=== PATIENT | male | born 1970 | race Caucasian/White ===

== ENCOUNTER → 2018-04-23 | Outpatient (CLI) | payer BC ==
[2018-04-23 14:17] LABS: BASO # 0.1 10^3/uL (0.0-0.2); BASO % 1.1 % (0.0-1.0); EOS # 0.4 10^3/uL (0.0-0.50); EOS % 4.2 % (0.0-3.0); HEMATOCRIT 45.9 % (42.0-52.0); HEMOGLOBIN 14.9 g/dl (13.5-17.5); IMMATURE GRANULOCYTE % 0.5 % (0-3.0); LYMPH # 2.9 10^3/uL (1.5-4.5); LYMPH % 33.5 % (24.0-44.0); MEAN CORPUSCULAR HEMOGLOBIN 30.1 pg (27.0-33.0); MEAN CORPUSCULAR HGB CONC 32.5 g/dl (32.0-36.5); MEAN CORPUSCULAR VOLUME 92.7 fl (80.0-96.0); MONO # 0.6 10^3/uL (0.0-0.8); MONO % 7.4 % (0.0-5.0); NEUTROPHILS # 4.6 10^3/uL (1.8-7.7); NEUTROPHILS % 53.3 % (36.0-66.0); PLATELET COUNT, AUTOMATED 244 10^3/uL (150-450); RED BLOOD COUNT 4.95 10^6/uL (4.30-6.10); RED CELL DISTRIBUTION WIDTH 13.5 % (11.5-14.5); WHITE BLOOD COUNT 8.5 10^3/uL (4.0-10.0)
[2018-04-23 14:24] LABS: RHEUMATOID FACTOR QUANT < 10.0 IU/ML (<15.0)
[2018-04-23 14:49] LABS: ERYTHROCYTE SEDIMENTATION RATE 5 mm/hr (0-15)
== END ==
LOC: M WUC 09:44
DX: H44.131 Sympathetic uveitis, right eye (principal)
CPT/HCPCS: 82164

== ENCOUNTER → 2018-04-24 | Outpatient (REF) | payer BC ==
[2018-04-26 15:07] LABS: QuantiFERON-TB Gold Plus Negative (Negative)
== END ==
LOC: M LAB REF 13:44
DX: H20.9 Unspecified iridocyclitis (principal)

== ENCOUNTER 2020-11-28 07:53 | Inpatient (IN) | payer BC ==
[~2020-11-28] VITALS: Ht 190.5 cm; Wt 107.5 kg
[2020-11-28] MEDS ORDERED: NS 1,000 ML IV ONE (08:35)
[2020-11-28 08:49] LABS: BASO # 0.1 10^3/uL (0.0-0.2); BASO % 0.6 % (0.0-1.0); EOS # 0.2 10^3/uL (0.0-0.5); EOS % 1.1 % (0.0-3.0); HEMATOCRIT 42.2 % (42.0-52.0); LYMPH # 2.4 10^3/uL (1.5-5.0); LYMPH % 13.8 % (24.0-44.0); MEAN CORPUSCULAR HEMOGLOBIN 29.9 pg (27.0-33.0); MEAN CORPUSCULAR HGB CONC 33.2 g/dl (32.0-36.5); MEAN CORPUSCULAR VOLUME 90.2 fl (80.0-96.0); MONO # 2.5 10^3/uL (0.0-0.8); MONO % 14.5 % (2.0-8.0); NEUTROPHILS % 68.5 % (36.0-66.0); PLATELET COUNT, AUTOMATED 396 10^3/uL (150-450); RED BLOOD COUNT 4.68 10^6/uL (4.30-6.10)
[2020-11-28 09:06] LABS: WHITE BLOOD COUNT 17.5 10^3/uL (4.0-10.0)
[2020-11-28 09:14] LABS: ALBUMIN 3.2 GM/DL (3.2-5.2); ALT/SGPT 60 U/L (12-78); BILIRUBIN,DIRECT 0.2 MG/DL (0.0-0.2); BILIRUBIN,TOTAL 0.6 MG/DL (0.2-1.0); BLOOD UREA NITROGEN 11 MG/DL (7-18); CALCIUM LEVEL 8.8 MG/DL (8.5-10.1); CARBON DIOXIDE LEVEL 23 MEQ/L (21-32); CHLORIDE LEVEL 99 MEQ/L (98-107); CK-MB VALUE MASS < 1.0 NG/ML (<3.6); CPK CREATINE PHOSPHOKINASE 40 U/L (39-308); CREATININE FOR GFR 0.89 MG/DL (0.70-1.30); GLOMERULAR FILTRATION RATE > 60.0 (>56); GLUCOSE, FASTING 108 MG/DL (70-100); LIPASE 72 U/L (73-393); POTASSIUM SERUM 4.3 MEQ/L (3.5-5.1); SODIUM LEVEL 133 MEQ/L (136-145); TOTAL PROTEIN 7.3 GM/DL (6.4-8.2); TROPONIN I < 0.02 NG/ML (< 0.10)
[2020-11-28] MEDS ORDERED: MORPHINE 2 MG/ML 1ML VIAL (J2270) IV ONE (09:15)
[2020-11-28] MEDS ORDERED: ONDANSETRON 4MG/2ML VIAL IV ONE (09:15)
[2020-11-28] MEDS ORDERED: PIPERACILLIN/TAZOBACTAM SOD 3.375 GM in D5W MINI-BAG PLUS 50 ML IV ONE (09:30)
[2020-11-28] MEDS ORDERED: ISOVUE-370 76% 100ML VIAL As Ordered ONE (09:40)
[2020-11-28 10:01] LABS: RSV AMPLIFICATION NEGATIVE (NEGATIVE)
--- NOTE | 2020-11-28 10:03 | REP ---
INDICATION: RLQ pain, fever, alternating bowel habits. COMPARISON: None TECHNIQUE: Axial contrast-enhanced images from the lung bases to the pubic symphysis using 100 cc Isovue 370 intravenous contrast material. Coronal and sagittal reformations obtained. This CT examination was performed using the following dose reduction techniques: Automated exposure control, adjustment of mA and/or kv according to the patient's size, and the use of iterative reconstruction technique. FINDINGS: Extending cranially from the base of the cecum there is a large complex somewhat multiloculated collection with air-fluid level and surrounding inflammatory changes along with reactive adenopathy. The terminal ileum and ileocecal valve are normal. Findings are compatible with ruptured appendicitis and abscess formation (images 60-105) no bowel obstruction. No pneumoperitoneum. Sigmoid diverticulosis noted without acute diverticulitis. Liver, pancreas, gallbladder, bilateral adrenal glands and kidneys are normal. Spleen includes 4 cm cystic lesion likely benign cyst or hemangioma. Pelvis demonstrates normal bladder and age-appropriate prostate/seminal vesicles. No significant ascites. Surrounding musculoskeletal structures are intact. Lung bases demonstrate basilar atelectasis. IMPRESSION: Ruptured appendicitis with abscess formation. <Electronically signed by Clinton Dill > 11/28/20 0923
[2020-11-28] MEDS ORDERED: MORPHINE 4 MG/ML 1ML VIAL/SYRINGE (J2270) IV PRN (10:25)
[2020-11-28] MEDS ORDERED: ONDANSETRON 4MG/2ML VIAL IV PRN (10:25)
[2020-11-28] MEDS ORDERED: ACETAMINOPHEN TAB 650MG DOSE (2X325MG) PO PRN (10:25)
[2020-11-28] MEDS: KETOROLAC 30 MG/ML 1ML VIAL IV PRN (11:09)
[2020-11-28 11:47] VITALS: BP 108/62
[2020-11-28 12:02] LABS: INR 1.15
[2020-11-28] MEDS: LR 1,000 ML IV SCH (12:39)
[2020-11-28 14:00] VITALS: BP 107/64
[2020-11-28] MEDS ORDERED: LIDOCAINE 1% MDV 20ML VIAL As Ordered ONE (14:44)
[2020-11-28 15:55] VITALS: BP 108/64
[2020-11-28] MEDS: PIPERACILLIN/TAZOBACTAM SOD 3.375 GM in D5W MINI-BAG PLUS 50 ML IV SCH ×2 (15:58→20:36)
[2020-11-28 22:00] VITALS: BP 104/64
--- NOTE | 2020-11-29 01:50 | HPEPDOC ---
General Surgery H&P Date of Admission Nov 28, 2020 Attending Physician: RONNY ROSAS MD History and Physical CHIEF COMPLAINT: abdominal pain HISTORY OF PRESENT ILLNESS: Patient presented to the ER with 7 day history of right lower abdominal pain, nausea, anorexia, occasional vomiting, and fever at least the past 3 days. Over all healthy for his age and does not take any medications chronically although he also does not go to a physician regularly for checkups. Otherwise he is in his usual state of health prior to start of this episode. Started 7 days ago, with sudden onset severe discomfort that is persistent. Denies any prior episodes of similar symptoms. Denies any prior colonoscopies ALLERGIES: Please see below. HOME MEDICATIONS: Please see below. PAST MEDICAL HISTORY: denies any chronic medical complaints PAST SURGICAL HISTORY: No prior surgery/anesthesia PERSONAL/SOCIAL HISTORY: Denies smoking, alcohol use, or recreational drug use. REVIEW OF SYSTEMS: GENERAL: reports fever at least 3 days, denies unexplained weight loss. HEENT: Denies blurred vision and double vision. Denies ear symptoms. Denies hoarseness. NECK: Denies any neck pain. CARDIOVASCULAR: Denies chest pain and palpitations. MUSCULOSKELETAL: Denies arthralgias, back pain and thrombophlebitis. SKIN: Denies rash. NEUROLOGIC: Denies headache, stroke and transient ischemic attack. PSYCHIATRIC: Denies anxiety and depression. ENDOCRINE: Denies thyroid disease. HEMATOLOGY/ONCOLOGY: Denies any bleeding or clotting disorder. HEART: Denies any chest pains, palpitations, paroxysmal dyspnea, orthopnea. PULMONARY: Denies chronic cough, dyspnea and wheezing. GASTROINTESTINAL: see HPI. GENITOURINARY: Denies dysuria, frequency, hematuria and nocturia. ENDOCRINE: Denies polydipsia, polyphagia, polyuria, heat or cold intolerance. INFECTIOUS: Denies any recent upper respiratory tract infection, UTI, need for use of antibiotics. NUTRITION: reports anorexia for one week. PHYSICAL EXAMINATION: VITAL SIGNS: Please see below. GENERAL APPEARANCE: Patient seen at bedside, appears relatively comfortable. Awake, alert, oriented. HEENT: Normocephalic, atraumatic. [place] palpebral conjunctivae. Anicteric sclerae. Lips mildly dry. CHEST: No chest wall abnormalities. Normal respiratory motion/effort. NECK: Supple. No thyromegaly. No lymphadenopathies. LUNGS: Lung sounds are clear to auscultation bilaterally. No wheezing a ppreciated. HEART: No chest wall abnormalities. Heart rate and rhythm are regular with no murmurs. ABDOMEN: mildly obese, mildly distended, slightly tympanitic. tender to palpation with mild guarding over right lower quadrant area, suprapubic area. Nontender upper abdomen. SKIN: warm, dry, no jaundice. EXTREMITIES: no significant edema. NEUROLOGICAL: awake, alert, oriented. ANCILLARIES: . LABORATORY DATA: Please see below. MICROBIOLOGY: Please see below. IMAGING: CT scan abdomen and pelvis I reviewed his CT imaging and this shows a localized abscess related to a perforated appendicitis IMPRESSION AND PLAN: Acute appendicitis with perforation and abscess I arranged for percutaneous drainage of abscess and this was done today by radiology. This shows drainage of seropurulent liquid. He feels better after the drainage. He is not showing any generalized peritonitis. He does report fever prior to coming here. He's been afebrile since his admission. We will continue the IV antibiotics. I discussed with him the general treatment and postprocedure course. Once he is afebrile and he is tolerating oral intake, he will be discharged with a drain and will switch to oral antibiotics. He will follow-up with me in the clinic determine when the drain can be removed. He has no prior histories of colonoscopy so he will need an interval colonoscopy usually in a couple months. We also discussed what to do with the appendix later on. I told him that this is morning option that I offer to remove the appendix to prevent recurrence below usually the risk for recurrence is only mildly elevated in the first year upwards of 30% but most of the time resumes back to a normal risk after that and usually can be dealt with at that time if he had ever had recurrence although he did present late, sessile perforation so he probably will benefit from an interval appendectomy. It is social situation is, gave her the fact that he is scheduled to PCS out of the area sometime in early December. The some of this workup and intervention may need to be done somewhere else if he is out of the area. continue IV antibiotics. Vital Signs Vital Signs Date Time Temp Pulse Resp B/P (MAP) Pulse Ox O2 Delivery O2 Flow Rate FiO2 11/28/20 22:00 98.2 78 20 104/64 (77) 92 Room Air I&Os I&O- Last 24 Hours up to 6 AM 11/29/20 06:00 Intake Total 200 ml Balance 200 ml Laboratory Data Labs 24H Laboratory Tests 2 11/28/20 08:25: Immature Granulocyte % (Auto) 1.5, Neutrophils (%) (Auto) 68.5H, Lymphocytes (%) (Auto) 13.8L, Monocytes (%) (Auto) 14.5H, Eosinophils (%) (Auto) 1.1, Basophils (%) (Auto) 0.6, Neutrophils # (Auto) 12.0H, Lymphocytes # (Auto) 2.4, Monocytes # (Auto) 2.5H, Eosinophils # (Auto) 0.2, Basophils # (Auto) 0.1, Nucleated Red Blood Cells % (auto) 0.0, Anion Gap 11, Glomerular Filtration Rate > 60.0, Lactic Acid Level 1.0, Calcium Level 8.8, Total Bilirubin 0.6, Direct Bilirubin 0.2, Aspartate Amino Transf (AST/SGOT) 23, Alanine Aminotransferase (ALT/SGPT) 60, Alkaline Phosphatase 109, Total Creatine Kinase 40, Creatine Kinase MB < 1.0, Creatine Kinase MB Relative Index 2.50, Troponin I < 0.02, Total Protein 7.3, Albumin 3.2, Albumin/Globulin Ratio 0.8, Lipase 72L 11/28/20 09:12: Coronavirus (COVID-19)(PCR) NEGATIVE, Influenza Type A (RT-PCR) NEGATIVE, Influenza Type B (RT-PCR) NEGATIVE, Respiratory Syncytial Virus (PCR) NEGATIVE 11/28/20 11:29: Prothrombin Time 15.0H, Prothromb Time International Ratio 1.15 CBC/BMP Laboratory Tests 11/28/20 08:25 Microbiology Microbiology 11/28/20 Gram Stain, Received Pending 11/28/20 Abscess Culture, Received Pending 11/28/20 Anaerobic Culture, Received Pending 11/28/20 Blood Culture, Received Pending 11/28/20 Blood Culture, Received Pending Home Medications No Active Prescriptions or Reported Meds Allergies Coded Allergies: No Known Drug Allergies (Verified Allergy, Unknown, 11/28/20) A-FIB/CHADSVASC A-FIB History Current/History of A-Fib/PAF?: No Current PO Anticoag Therapy: No RONNY ROSAS MD Nov 29, 2020 01:50
[2020-11-29] MEDS: LR 1,000 ML IV SCH ×3 (02:14→15:49)
[2020-11-29] MEDS: PIPERACILLIN/TAZOBACTAM SOD 3.375 GM in D5W MINI-BAG PLUS 50 ML IV SCH ×4 (03:03→20:40)
[2020-11-29 06:00] VITALS: BP 105/70
[2020-11-29 06:21] LABS: BASO # 0.1 10^3/uL (0.0-0.2); BASO % 0.4 % (0.0-1.0); EOS # 0.3 10^3/uL (0.0-0.5); EOS % 2.2 % (0.0-3.0); HEMOGLOBIN 12.2 g/dl (13.5-17.5); LYMPH # 2.3 10^3/uL (1.5-5.0); LYMPH % 17.4 % (24.0-44.0); MEAN CORPUSCULAR HEMOGLOBIN 30.3 pg (27.0-33.0); MEAN CORPUSCULAR VOLUME 91.8 fl (80.0-96.0); MONO # 1.8 10^3/uL (0.0-0.8); MONO % 13.4 % (2.0-8.0); NEUTROPHILS # 8.7 10^3/uL (1.5-8.5); NEUTROPHILS % 64.7 % (36.0-66.0); PLATELET COUNT, AUTOMATED 357 10^3/uL (150-450); RED BLOOD COUNT 4.03 10^6/uL (4.30-6.10)
[2020-11-29 06:24] LABS: WHITE BLOOD COUNT 13.4 10^3/uL (4.0-10.0)
[2020-11-29 06:43] LABS: BLOOD UREA NITROGEN 9 MG/DL (7-18); CALCIUM LEVEL 8.3 MG/DL (8.5-10.1); CARBON DIOXIDE LEVEL 25 MEQ/L (21-32); CHLORIDE LEVEL 105 MEQ/L (98-107); CREATININE FOR GFR 0.83 MG/DL (0.70-1.30); GLOMERULAR FILTRATION RATE > 60.0 (>56); GLUCOSE, FASTING 107 MG/DL (70-100); POTASSIUM SERUM 4.1 MEQ/L (3.5-5.1); SODIUM LEVEL 138 MEQ/L (136-145)
[2020-11-29] MEDS: KETOROLAC 30 MG/ML 1ML VIAL IV PRN ×3 (09:03→21:36)
--- NOTE | 2020-11-29 13:16 | REP ---
INDICATION: rlq abscess. COMPARISON: None. TECHNIQUE: The procedure was performed under the direct supervision of Dr. Varela. The patient has a history of a large, complex, somewhat multiloculated collection with air-fluid levels in surrounding inflammatory changes, extending cranially from the base of the cecum, seen on a previous CT scan performed earlier today. The risks and benefits of the procedure were explained to the patient and informed consent was obtained. The fluid pocket was localized using CT guidance. The skin was prepped and draped in a sterile fashion. 1% lidocaine was used as a local anesthetic. Using CT guidance an 8 [place] skater APDL catheter was inserted using trocar technique. 80 cc of base colored fluid was withdrawn and sent to the lab for analysis. The cavity was flushed with one 10 cc aliquot of sterile saline. The catheter was affixed to the skin and a sterile dressing was applied. The catheter was connected to a gravity drainage bag. The patient tolerated the procedure well and there were no immediate complications. After the appropriate amount to monitor convalescence the patient was discharged from the department. FINDINGS: Right lower quadrant abscess. IMPRESSION: CT-guided right lower quadrant abscess drain. <Electronically signed by Sha Lopez > 11/28/20 [id number] <Electronically signed by Rodger Varela > 11/29/20 1312
[2020-11-29 14:00] VITALS: BP 108/57
[2020-11-29 22:00] VITALS: BP 105/59
[2020-11-30] MEDS: PIPERACILLIN/TAZOBACTAM SOD 3.375 GM in D5W MINI-BAG PLUS 50 ML IV SCH ×2 (03:56→09:35)
[2020-11-30] MEDS: KETOROLAC 30 MG/ML 1ML VIAL IV PRN (05:29)
[2020-11-30 06:00] VITALS: BP 109/62
[2020-11-30 06:04] LABS: BASO # 0.1 10^3/uL (0.0-0.2); BASO % 0.5 % (0.0-1.0); EOS # 0.5 10^3/uL (0.0-0.5); EOS % 4.5 % (0.0-3.0); HEMOGLOBIN 12.2 g/dl (13.5-17.5); LYMPH # 1.9 10^3/uL (1.5-5.0); LYMPH % 17.6 % (24.0-44.0); MEAN CORPUSCULAR HEMOGLOBIN 29.5 pg (27.0-33.0); MEAN CORPUSCULAR HGB CONC 32.1 g/dl (32.0-36.5); MEAN CORPUSCULAR VOLUME 91.8 fl (80.0-96.0); MONO # 1.2 10^3/uL (0.0-0.8); MONO % 11.1 % (2.0-8.0); PLATELET COUNT, AUTOMATED 379 10^3/uL (150-450); RED BLOOD COUNT 4.14 10^6/uL (4.30-6.10)
--- NOTE | 2020-11-30 08:54 | IPNPDOC ---
Text Note Date of Service The patient was seen on 11/29/20. NOTE Patient reports feeling better after the drainage of his right lower quadrant abscess. He has been afebrile. He is tolerating soft diet. He had loose BM today. Vitals reviewed stable and afebrile On examination He looks comfortable. He was eating dinner at the time that I saw him. He is tolerating this. Lung sounds are clear bilaterally He is non-tachycardic Abdomen is soft, minimally distended. Mild residual tenderness over the right lower quadrant area which is improved from my initial examination. He is draining though is putting out more a stool-like brownish appearance. On initial placement this is more serosanguineous. Impression and plan Perforated appendicitis with abscess status post percutaneous drainage of abscess Cultures are not available yet though he is going multi-organisms including gram-positive cocci 7 rods and gram-negative rods. I will continue him Zosyn for now until we have speciation so we can decide what to send him home on orally He most likely will need to go home with a drain and we'll need to watch the output of the drain specifically its character. It looks stool-like in appearance and is yet to be determined whether this will resolve by itself orders a continued leak of stool content at the site of perforation. Nevertheless is appears well-controlled. He is clinically improved. His labs also show improvement. He still a significant elevation of his CRP. He does have some site issues that we will need to take counts, specifically he is scheduled to PCS about 6 weeks from now out of the area. If his condition is not fully resolved he may need to find somebody to follow up on him later on. VS,Fishbone, I+O VS, Fishbone, I+O Laboratory Tests 11/30/20 05:36 Vital Signs Date Time Temp Pulse Resp B/P (MAP) Pulse Ox O2 Delivery O2 Flow Rate FiO2 11/30/20 06:00 97.4 66 17 109/62 (78) 96 Room Air I&O- Last 24 Hours up to 6 AM 11/30/20 06:00 Intake Total 1540 ml Output Total 1115 ml Balance 425 ml RONNY ROSAS MD Nov 30, 2020 08:54
[2020-11-30] MEDS ORDERED: METR-265 PO (11:27)
[2020-11-30] MEDS ORDERED: OXYC1TAB23 PO (11:27)
[2020-11-30] MEDS ORDERED: AUGM875T28 PO (11:27)
--- NOTE | 2020-11-30 11:44 | DS.PDOC ---
Discharge Summary General Date of Admission Nov 28, 2020 at 10:21 Date of Discharge November 30, 2020 Attending Physician: RONNY ROSAS MD Discharge Summary PROCEDURES PERFORMED DURING STAY: CT guided drainage of abdominal abscess (11/28/20 by radiology). ADMITTING DIAGNOSES: 1. Acute appendicitis with perforation and abscess. DISCHARGE DIAGNOSES: 1. Acute appendicitis with perforation and abscess. COMPLICATIONS/CHIEF COMPLAINT: Abd Pain, Rupture Of Appendix. HISTORY OF PRESENT ILLNESS: Patient presented to the ER with 7 day history of right lower abdominal pain, nausea, anorexia, occasional vomiting, and fever at least the past 3 days. Over all healthy for his age and does not take any medications chronically although he also does not go to a physician regularly for checkups. Otherwise he is in his usual state of health prior to start of this episode. Started 7 days ago, with sudden onset severe discomfort that is persistent. Denies any prior episodes of similar symptoms. Denies any prior colonoscopies. HOSPITAL COURSE: Patient presented to the ED on 11/28 with 7 days history of abdominal pain, intermittent fever, anorexia and found to have a localized abscess on the RLQ area associated with appendiceal perforation. CT guided drainage was arranged. Initial drainage was sero-purulent but later became more stool-like in appearance then more purulent but decreased in amount. Abdominal pain markedly improved. He was afebrile throughout his stay. He is tolerating regular diet. Over all markedly improved after drainage and antibiotics DISCHARGE MEDICATIONS: Please see below. ALLERGIES: Please see below. PHYSICAL EXAMINATION ON DISCHARGE: VITAL SIGNS: Please see below. GENERAL: comfortable HEENT: normocephalic NECK: supple,no JVD CARDIOVASCULAR EXAMINATION: Regular heart rate and rhythm RESPIRATORY EXAMINATION: Clear breath sounds bilaterally, no wheezing ABDOMINAL EXAMINATION: slightly rounded, soft, drain output more purulent than stool, decreased output. minimally tender rlq area EXTREMITIES: no edema SKIN: no jaundice NEUROLOGICAL EXAMINATION: awake, alert, oriented PSYCHIATRIC EXAMINATION: LABORATORY DATA: Please see below. IMAGING: CT abdomen and pelvis PROGNOSIS: good ACTIVITY: light activity. DIET: as tolerated DISCHARGE PLAN: d/c home with drain on augmentin and metronidazole x 10 days DISPOSITION: . DISCHARGE INSTRUCTIONS: 1. Record drain output daily 2. May shower, dry skin around drain site. Change drain dressing as needed 3. Follow up next week for possible drain removal. ITEMS TO FOLLOWUP ON ON OUTPATIENT: 1. final cultures 2. drain output. DISCHARGE CONDITION: [Stable]. TIME SPENT ON DISCHARGE: Greater than minutes. Vital Signs/I&Os Vital Signs Date Time Temp Pulse Resp B/P (MAP) Pulse Ox O2 Delivery O2 Flow Rate FiO2 11/30/20 06:00 97.4 66 17 109/62 (78) 96 Room Air I&O- Last 24 Hours up to 6 AM 11/30/20 06:00 Intake Total 1540 ml Output Total 1115 ml Balance 425 ml Laboratory Data Labs 24H Laboratory Tests 2 11/30/20 05:36: Immature Granulocyte % (Auto) 2.3, Neutrophils (%) (Auto) 64.0, Lymphocytes (%) (Auto) 17.6L, Monocytes (%) (Auto) 11.1H, Eosinophils (%) (Auto) 4.5H, Basophils (%) (Auto) 0.5, Neutrophils # (Auto) 7.0, Lymphocytes # (Auto) 1.9, Monocytes # (Auto) 1.2H, Eosinophils # (Auto) 0.5, Basophils # (Auto) 0.1, Nucleated Red Blood Cells % (auto) 0.0, C-Reactive Protein, Quantitative 11.60H CBC/BMP Laboratory Tests 11/30/20 05:36 Microbiology Microbiology 11/28/20 Gram Stain - Final, Resulted 11/28/20 Abscess Culture - Preliminary, Resulted Escherichia Coli 11/28/20 Anaerobic Culture, Resulted Pending 11/28/20 Blood Culture - Preliminary, Resulted No Growth after 48 hours. All Specime... 11/28/20 Blood Culture - Preliminary, Resulted No Growth after 48 hours. All Specime... Discharge Medications Scheduled Amoxicillin/Potassium Clav (Augmentin 875-125 Tablet) 1 Each Tablet, 1 TAB PO B ID Metronidazole (Metronidazole) 500 Mg Tablet, 1 TAB PO TID Scheduled PRN Oxycodone HCl/Acetaminophen (Oxycodone-Acetaminophen 5-325) 1 Each Tablet, 1 TAB PO TIDP PRN for pain Allergies Coded Allergies: No Known Drug Allergies (Verified Allergy, Unknown, 11/28/20) RONNY ROSAS MD Nov 30, 2020 11:44
== END 2020-11-30 12:57 | disposition home or self-care (01) | DRG 248 ==
LOC: M ED 07:53 → M ED INP 10:21 → ENRESERV 11:16 → M MS5PR 11:48
PROVIDERS: ADMIT Surgery; ATTEND Surgery
PROC: 0W9G30Z Drainage of Peritoneal Cavity with Drainage Device, Percutaneous Approach (ICD-10-PCS; principal; 2020-11-28 14:00)
DX: K35.21 Acute appendicitis with generalized peritonitis, with abscess (principal); Z20.822 Contact with and (suspected) exposure to COVID-19